=== PATIENT | female | born 1945 | race Caucasian/White ===

== ENCOUNTER 2018-08-19 13:48 | Inpatient (IN) ==
[2018-08-19] MEDS ORDERED: CeFAZolin Syr 2,000MG/20 ML 2,000 MG/20 ML SYRINGE IVPB ONE (14:11)
[2018-08-19] MEDS ORDERED: Ringers Solution, Lactated 1,000 ML IVC SCH ×2 (14:15→19:13)
[2018-08-19] MEDS ORDERED: Acetaminophen IV 1,000 MG/100 ML INFUS..BTL IVPB ONE (15:26)
[2018-08-19] MEDS ORDERED: Ondansetron 4 MG/2 ML VIAL IVP ONE (15:26)
[2018-08-19] MEDS ORDERED: Ketorolac 30 MG/ML VIAL IVP ONE (15:26)
[2018-08-19] MEDS ORDERED: *HR* Labetalol 20 MG/4 ML SYRINGE IVP PRN (15:26)
[2018-08-19] MEDS ORDERED: *HR* Promethazine 25 MG/ML VIAL IVP PRN (15:26)
[2018-08-19] MEDS ORDERED: *HR* HYDROmorphone (PF) 1 MG/ML SYRINGE IVP PRN (15:26)
[2018-08-19] MEDS ORDERED: *HR* OxyCODONE Immed Rel 5 MG TABLET PO PRN ×2 (15:26→19:13)
[2018-08-19] MEDS ORDERED: Albuterol 2.5 MG/3 ML NEBULIZER IH ONE (15:26)
--- NOTE | 2018-08-19 15:38 | Anesthesia Evaluation PreOp ---
Date of Encounter: 08/19/18 Time of Encounter: 15:34 - Past History Planned Operation: LEFT TSA Cardiac History: CHF, HTN, Hyperlipidemia, Other (NORMAL EF, TID ON STRESS TEST, 40% LAD ON LHC) Pulmonary History: Former smoker, COPD, FRANCISCO Dx (CPAP) PATIENT ACCOUNTS COORDINATOR History: Denies Any Significant HX Other Medical History: Other (OBESITY, BMI 37) Anesthesia History: No Prior Anesthetic Complications, Past Anesthesia Alcohol Use: none Drug use: none Medications and Allergies Aspirin Enteric Coated [Aspirin EC] 81 mg PO DAILY 01/06/16 [History] Metoprolol [Lopressor] 25 mg PO BID 01/06/16 [History] Sertraline [Zoloft] 1 tab PO HS 01/06/16 [History] Simvastatin [Zocor] 20 mg PO HS 01/06/16 [History] Furosemide [Lasix] 20 mg PO DAILY 07/04/18 [History] Levocetirizine Dihydrochloride [Allergy Relief (Xyzal)] 5 mg PO HS 07/04/18 [History] Albuterol Sulfate [Proair Hfa] 1 puff IH Q6H PRN 08/19/18 [History] Ascorbic Acid/Vitamin E/Biotin [Hair Skin Nails-Biotin Gummies] 1 each PO DAILY 08/19/18 [History] Budesonide/Formoterol 160/4.5 [Symbicort 160/4.5] 2 puff IH BID 08/19/18 [History] Calcium Carbonate [Calcium] 600 mg PO DAILY 08/19/18 [History] FluocinoNIDE 0.05% CRM [Lidex] 1 appl TP BID 08/19/18 [History] Iron 28 mg PO DAILY 08/19/18 [History] OxyCODONE Immed Rel [Roxicodone 5 MG] 5 mg PO Q6HR PRN 5 Days #20 tablet 08/19/18 [Rx] Piroxicam [Feldene] 20 mg PO DAILY 08/19/18 [History] Potassium Chloride 10 meq PO DAILY 08/19/18 [History] Allergy/AdvReac Type Severity Reaction Status Date / Time iodine Allergy Flushing Verified 08/19/18 15:19 Penicillins [PCN] Allergy Hives Verified 08/19/18 14:14 - Meds/Allergy Pre-op Review Medications Reviewed: Yes Allergies Reviewed: Yes Beta Blockers on Current Med List: Yes If Beta Blockers taken, Date/Time (Last Dose taken): 0900 Anesthesia Exam O2 Sat Height 1.6 m Height 1.6 m Weight 94.801 kg Weight 94.801 kg O2 Sat by Pulse Oximetry 97 Vital Signs Temp Pulse Resp BP Pulse Ox 98.5 F 62 18 157/81 97 08/19/18 14:12 08/19/18 14:12 08/19/18 14:12 08/19/18 14:12 08/19/18 14:12 NPO (# of Hours): 8 - HEENT Mallampati: IV Teeth: Edentulous Denture Type: Upper: Complete, Lower: Complete - Cardiac Rhythm: Regular - Pulmonary Breath Sounds: bilateral Clear Respiratory Effort: Symmetrical Anesthesia Assess/Plan ASA Score: 3 Anesthetic Plan: General, Regional Nerve Block Monitoring Plan: Standard Monitors Recovery Plan: PACU
[2018-08-19] MEDS ORDERED: *HR* Propofol 200 MG/20 ML VIAL IVP ONE (15:55)
--- NOTE | 2018-08-19 15:55 | History & Physical Report ---
Date of Encounter: 08/19/18 Time of Encounter: 15:55 24 Hour HP Update - Instructions Instructions: If the History and Physical is less than 30 days old and was completed prior to A.M. admission and or procedure and has NOT been updated on calendar day of procedure please complete this update prior to performing procedure. - Update Patient reports changes in Medical Condition: No Changes in examination, assessment, or condition: No Changes in Medication: No Preop tests/diagnostics Reviewed: Yes Surgery Remains Indicated: Yes Consent for Planned Operative Procedure(s) Verified: Yes - Pre-Operative Checklist Preoperative Checklist Indicated: No Prophylactic Antibiotic Ordered: Yes Is VTE Prophylaxis Indicated?: Yes
[2018-08-19] MEDS ORDERED: ROPIVACAINE HCL/PF 0.5% 30 ML VIAL ONE (16:05)
[2018-08-19] MEDS ORDERED: Ethanol\\Acetic Acid\\Na Ace\\Ben 1,000 ML IRRIG.SOLN IR ONE (16:19)
[2018-08-19] MEDS ORDERED: Clindamycin 900 MG/50 ML 900 MG/50 ML IV.SOLN IVPB ONE ×2 (16:44→16:46)
[2018-08-19] MEDS ORDERED: KETAMINE HCL 50 MG/ML SYRINGE IV ONE (16:49)
--- NOTE | 2018-08-19 16:52 | Anesthesia Procedures ---
Date of Encounter: 08/19/18 Time of Encounter: 16:45 Procedures: Anesthesia - Nerve Block Procedure Date: 08/19/18 Time: 16:45 Allergies/Adv Reactions: iodine, pcn Pre-op Diagnosis: left shoulder rc arthropathy Surgical Procedure: left TSA rev Checklist: Correct Patient Identifier, Correct procedure, History checked Correct side: Left Blood Thinner: No Monitor Applied: EKG, BP, Pulse Oximetry Supplemental Oxygen via Nasal Cannula (L/min): 2 Indication: Post Op Analgesia Pre-op Neuro Deficits: No Block Type: Supraclavicular Catheter placed: No Sterile Technique: Yes Ultrasound used: Yes Anatomy identified: Yes Visual spread of Local: Yes Neuro Stimulation: No Blood on Needle Aspiration: No Smooth Injection of Local: Yes Pain with Injection of Local: No Prep: Chlorhexadine Needle: 22 x 50 mm Stimuplex Local: Ropivacaine (0.5% 30ml), Other (decadron 8mg) Volume (cc): 30 Number of Attempts: 1 Complications: None/effective block Vitals: Vital Signs/O2 Sat/Glucose, Most Recent Temp Pulse Resp BP Pulse Ox 98.5 F 59 15 133/76 98 08/19/18 14:12 08/19/18 16:42 08/19/18 16:42 08/19/18 16:42 08/19/18 16:42
[2018-08-19] MEDS ORDERED: Lidocaine -MPF 2% 2 ML VIAL ONE ×3 (16:53→17:34)
--- NOTE | 2018-08-19 16:54 | Discharge Summary ---
Orders not resulted at time of discharge: Pending orders 08/19/18 13:26 XR post op reverse apex LT [XR] Routine Hemoglobin and Hematocrit [HEME] Routine 08/19/18 15:06 US anesthesia pain block [US] Routine Date of Encounter: 08/20/18 - Discharge Diagnosis (1) CHF (congestive heart failure) Priority: Secondary Status: Chronic Qualifiers: Heart failure type: diastolic Heart failure chronicity: chronic Qualified Code(s): I50.32 - Chronic diastolic (congestive) heart failure (2) Hypertension Priority: Secondary Status: Chronic Qualifiers: Hypertension type: unspecified Qualified Code(s): I10 - Essential (primary) hypertension (3) Hyperlipidemia Priority: Secondary Status: Chronic Qualifiers: Hyperlipidemia type: unspecified Qualified Code(s): E78.5 - Hyperlipidemia, unspecified (4) Obstructive sleep apnea Priority: Secondary Status: Chronic (5) COPD (chronic obstructive pulmonary disease) Priority: Secondary Status: Chronic Qualifiers: COPD type: unspecified COPD Qualified Code(s): J44.9 - Chronic obstructive pulmonary disease, unspecified (6) Obesity (BMI 35.0-39.9 without comorbidity) Priority: Secondary Status: Chronic (7) Rotator cuff tear arthropathy of left shoulder Priority: Primary Status: Chronic (8) Status post reverse total replacement of left shoulder Priority: Primary Status: Acute (9) Atrial fibrillation Priority: Primary Status: Acute Qualifiers: Atrial fibrillation type: unspecified Qualified Code(s): I48.91 - Unspecified atrial fibrillation (10) Coronary artery disease Priority: Secondary Status: Chronic Qualifiers: Coronary Disease-Associated Artery/Lesion type: [place] artery [place] vs. transplanted heart: [place] heart Associated angina: without angina Qualified Code(s): I25.10 - Atherosclerotic heart disease of [place] coronary artery with out angina pectoris (11) Depression Priority: Secondary Status: Chronic Qualifiers: Depression Type: major depressive disorder Major depression recurrence: unspecified whether recurrent Active/Remission status: remission status unspecified Qualified Code(s): F32.9 - Major depressive disorder, single episode, unspecified - Hospital Course Hospital course: Ms. Smith is a 73 year old female Patient seen this morning doing well, patient with stable arrhythmia Intra-Op, diagnosed with atrial fibrillation postsurgery. Patient converted back overnight. Orthopedically stable physical therapy, antibiotic therapy. - Time Spent with Patient Total time spent providing and/or coordinating discharge services: - Discharge Medications Prescriptions: New OxyCODONE Immed Rel [Roxicodone 5 MG] 5 mg PO Q6HR PRN 5 Days #20 tablet PRN Reason: Pain Continue Metoprolol [Lopressor] 25 mg PO BID Aspirin Enteric Coated [Aspirin EC] 81 mg PO DAILY Simvastatin [Zocor] 20 mg PO HS Sertraline [Zoloft] 1 tab PO HS Furosemide [Lasix] 20 mg PO DAILY Levocetirizine Dihydrochloride [Allergy Relief (Xyzal)] 5 mg PO HS Potassium Chloride 10 meq PO DAILY Albuterol Sulfate [Proair Hfa] 1 puff IH Q6H PRN PRN Reason: Shortness Of Breath Piroxicam [Feldene] 20 mg PO DAILY Iron 28 mg PO DAILY FluocinoNIDE 0.05% CRM [Lidex] 1 appl TP BID Calcium Carbonate [Calcium] 600 mg PO DAILY Ascorbic Acid/Vitamin E/Biotin [Hair Skin Nails-Biotin Gummies] 1 each PO DAILY Budesonide/Formoterol 160/4.5 [Symbicort 160/4.5] 2 puff IH BID Home Medications: Aspirin Enteric Coated [Aspirin EC] 81 mg PO DAILY 01/06/16 [History] Metoprolol [Lopressor] 25 mg PO BID 01/06/16 [History] Sertraline [Zoloft] 1 tab PO HS 01/06/16 [History] Simvastatin [Zocor] 20 mg PO HS 01/06/16 [History] Furosemide [Lasix] 20 mg PO DAILY 07/04/18 [History] Levocetirizine Dihydrochloride [Allergy Relief (Xyzal)] 5 mg PO HS 07/04/18 [History] Albuterol Sulfate [Proair Hfa] 1 puff IH Q6H PRN 08/19/18 [History] Ascorbic Acid/Vitamin E/Biotin [Hair Skin Nails-Biotin Gummies] 1 each PO DAILY 08/19/18 [History] Budesonide/Formoterol 160/4.5 [Symbicort 160/4.5] 2 puff IH BID 08/19/18 [History] Calcium Carbonate [Calcium] 600 mg PO DAILY 08/19/18 [History] FluocinoNIDE 0.05% CRM [Lidex] 1 appl TP BID 08/19/18 [History] Iron 28 mg PO DAILY 08/19/18 [History] OxyCODONE Immed Rel [Roxicodone 5 MG] 5 mg PO Q6HR PRN 5 Days #20 tablet 08/19/18 [Rx] Piroxicam [Feldene] 20 mg PO DAILY 08/19/18 [History] Potassium Chloride 10 meq PO DAILY 08/19/18 [History] Allergies/Adverse Reactions: Allergy/AdvReac Type Severity Reaction Status Date / Time iodine Allergy Flushing Verified 08/19/18 15:19 Penicillins [PCN] Allergy Hives Verified 08/19/18 14:14 Primary care physician: Deejay Dhillon DO - Discharge Instructions Follow Up With: Deejay Dhillon DO [Primary Care Provider] -
[2018-08-19] MEDS ORDERED: Ondansetron 4 MG/2 ML VIAL ONE (17:02)
[2018-08-19] MEDS ORDERED: Dexamethasone 4 MG/ML VIAL ONE (17:02)
[2018-08-19] MEDS ORDERED: EPHEDrine 50 MG/ML VIAL ONE (17:22)
[2018-08-19] MEDS ORDERED: *HR* PHENYLEPHRINE 1,000 MCG/10 ML SYRINGE IVP ONE (17:24)
[2018-08-19] MEDS ORDERED: *HR* Adenosine 6 MG/2 ML VIAL IVP ONE ×2 (17:33→17:43)
[2018-08-19] MEDS ORDERED: *HR* Amiodarone 150 MG/3 ML VIAL IVPB ONE ×2 (17:35→17:36)
[2018-08-19] MEDS ORDERED: Amiodarone Premix 360 MG/200 ML BAG IVC ONE (17:35)
--- NOTE | 2018-08-19 17:45 | Orthopedic Operative Note ---
Date of procedure: 08/19/18 Pre-op diagnosis: Left shoulder cuff tear arthropathy Post-op diagnosis: same Procedure: Procedure: Total Shoulder Replacment Reverse, left Estimated blood loss: 100 cc Hardware: Metal and polyethylene replacement: Arthrex 24, +2 , 25 mm screw glenoid baseplate, 4 locking 5.5 screw, 36+4 glenosphere, 7 apex humeral stem, poly insert 6 Exam Under anesthesia: Full motion no instability Procedural Notes: Irreparable rotator cuff tear Operative procedure: The patient was brought to the operating room and placed on the operating room table. After general anesthesia was administered the operative shoulder was examined. Findings were noted. The patient was placed in the modified beachchair position. All pressure points were padded appropriately. And the head was stabilized in the neutral position. The operative extremity was prepped and draped in the sterile surgical fashion. The patient received IV antibiotics prior to skin incision. A standard deltopectoral approach was made to the operative shoulder. Incision was made to the skin and subcutaneous tissue,hemo stasis was obtained with Bovie cautery. Using careful blunt dissection the cephalic vein was identified and mobilized medially. The deltopectoral interval was developed and the clavipectoral fascia was incised. The subscap was released off the lesser tuberosity and tagged with #2 FiberWire suture subscap was irreparable. The humerus was dislocated patient noted to have irreparable tear supraspinatus tendon, and the humeral cut was made along the anatomic neck. Anterior and posterior Bankart retractors were placed to expose the glenoid. The glenoid guide was seated and the centering hole was made. It was reamed with the appropriate reamer. The 24, +2, 25 mm screw, baseplate was seated and secured with 4 locking 5.5 screw. The baseplate was irrigated and dried and the 36+4 Glenosphere was seated and secured with the Simmons taper. The Simmons taper was tested and found to be secure, glenosphere fixation was secondarily secured with the central screw. The humerus was redislocated and prepared with the diaphyseal reamers, followed by a broaching process up to the appropriate size 7 in the patient's anatomic version. The metaphyseal reamer was then utilized. Trial reduction found the shoulder to be relocatable. Trial components were removed and 7 stem was impacted in place in the patient's anatomic version. Trial reduction found the shoulder to be relocatable and stable with the appropriate X. Trial component was removed and the real implant was seated and secured the shoulder was reduced. The shoulder had excellent motion and ex cellent stability and no evidence of dislocation. The deep tissue was irrigated with pulse irrigation. The deltopectoral interval was closed with a running #1 PDS suture, subcutaneous tissue was irrigated and closed with 0 PDS suture, the skin was closed with skin blake The patient was placed in a sterile dressing, abduction brace and extubated. The patient was then transferred to the recovery room in stable condition. Anesthesia: GETA Surgeon: Johnny Waters Was there an physician assistant primary care present: No Estimated blood loss (cc): 100 Condition: stable Disposition: PACU
--- NOTE | 2018-08-19 17:55 | Physician Discharge Referral ---
Home Health/Hosp Referral Info Transfer to: Home Health Attending Provider: Jt - Diagnosis (1) Status post reverse total replacement of left shoulder Priority: Primary Status: Acute (2) Rotator cuff tear arthropathy of left shoulder Priority: Primary Status: Chronic (3) COPD (chronic obstructive pulmonary disease) Priority: Secondary Status: Acute (4) CHF (congestive heart failure) Priority: Secondary Status: Chronic (5) Hyperlipidemia Priority: Secondary Status: Chronic (6) Hypertension Priority: Secondary Status: Chronic (7) Obesity (BMI 35.0-39.9 without comorbidity) Priority: Secondary Status: Chronic (8) Obstructive sleep apnea Priority: Secondary Status: Chronic - Respiratory Orders Smoking Cessation: Smoking cessation has been advised. For more information, call the [employer] Tobacco Quit Line at 7-251-ZFLR-NOW. - Diet/Nutrition Diet/Nutrition Orders: Regular - Activity Activity Orders: Up ad tangela, Ambulate, Chair - Services Needed Following services are medically necessary services: Nursing, Home Health Aide, Physical Therapy, Occupational Therapy Home Care Orders: Opsite dressing, leave intact until first post-operative visit. Zipline/Jaya in place, plan to remove at post-operative day #14-16. If dressing becomes >50% saturated, contact office, remove dressing and place appropriate dressing in its place. Do not allow for dressing to get wet. Shoulder Precautions x 6 weeks. Apply cold therapy wrap 3-6x/day for 20 minutes at a time. Encourage ambulation throughout the day. Use Incentive spirometer 10x/hour. Elevate affected extremity above heart as tolerated. NWB to affected upper extremity x 6 weeks. Will remove brace at first post-operative appointment. OK to remove during PT/OT and Home exercises. - Transfer Medications Prescriptions: OxyCODONE Immed Rel [Roxicodone 5 MG] 5 mg PO Q6HR PRN 5 Days #20 tablet PRN Reason: Pain Home Medications: Aspirin Enteric Coated [Aspirin EC] 81 mg PO DAILY 01/06/16 [History] Metoprolol [Lopressor] 25 mg PO BID 01/06/16 [History] Sertraline [Zoloft] 1 tab PO HS 01/06/16 [History] Simvastatin [Zocor] 20 mg PO HS 01/06/16 [History] Furosemide [Lasix] 20 mg PO DAILY 07/04/18 [History] Levocetirizine Dihydrochloride [Allergy Relief (Xyzal)] 5 mg PO HS 07/04/18 [History] Albuterol Sulfate [Proair Hfa] 1 puff IH Q6H PRN 08/19/18 [History] Ascorbic Acid/Vitamin E/Biotin [Hair Skin Nails-Biotin Gummies] 1 each PO DAILY 08/19/18 [History] Budesonide/Formoterol 160/4.5 [Symbicort 160/4.5] 2 puff IH BID 08/19/18 [History] Calcium Carbonate [Calcium] 600 mg PO DAILY 08/19/18 [History] FluocinoNIDE 0.05% CRM [Lidex] 1 appl TP BID 08/19/18 [History] Iron 28 mg PO DAILY 08/19/18 [History] OxyCODONE Immed Rel [Roxicodone 5 MG] 5 mg PO Q6HR PRN 5 Days #20 tablet 08/19/18 [Rx] Piroxicam [Feldene] 20 mg PO DAILY 08/19/18 [History] Potassium Chloride 10 meq PO DAILY 08/19/18 [History] Allergies/Adverse Reactions: Allergy/AdvReac Type Severity Reaction Status Date / Time iodine Allergy Flushing Verified 08/19/18 15:19 Penicillins [PCN] Allergy Hives Verified 08/19/18 14:14 Certification: Further, I certify that my clinical findings support that this patient is homebound (i.e. absences from home require considerable and taxing effort and are for medical reasons or jewish services or infrequently or short duration when for other reasons) because: Homebound Reason: Post-surgery restriction and or conditions limit ability to leave home Attestation: My signature below is to certify that this patient is under my care and that I, or nurse practitioner, or a physician assistant office manager working with me, has a [id number] encounter with this patient.
[2018-08-19] MEDS ORDERED: *HR* Enoxaparin 30 MG/0.3 ML SYRINGE SQ SCH (18:00)
[2018-08-19] MEDS ORDERED: Esmolol 100 MG/10 ML VIAL IVP ONE (18:32)
[2018-08-19] MEDS ORDERED: *HR* Metoprolol 5 MG/5 ML VIAL IVP ONE (18:33)
[2018-08-19 18:35] LABS: Hematocrit 38.3 % (35.3-44.9); Hemoglobin 12.5 g/dL (11.5-15.4); Mean Corpuscular HGB Conc 32.6 g/dL (31.6-35.5); Mean Corpuscular Hemoglobin 31.1 pg (28.0-33.3); Mean Corpuscular Volume 95.3 fL (83.0-100.0); Mean Platelet Volume 10.3 fL (9.4-12.4); Platelet Count 221 K/mcL (140-400); Red Blood Count 4.02 M/mcL (3.82-4.97); Red Cell Distribution Width 12.5 % (11.5-14.5)
--- NOTE | 2018-08-19 18:36 | Anesthesia Evaluation Post Op ---
Date of Encounter: 08/19/18 Time of Encounter: 18:36 - Vital Signs Vital Signs: Last Vital Signs Temp 98.5 F 08/19/18 17:52 Pulse 124 08/19/18 18:02 Resp 14 08/19/18 18:02 BP 116/66 08/19/18 18:12 Pulse Ox 98 08/19/18 18:12 - Lungs Lungs: Clear Ascult./Percussion - Airway Airway: Non-obstructed - Cardiovascular Irregular Rate, New Rhythm (cardiology consulted; new onset A fib; patient stable and asymptomatic) - Mental Status Mental Status: Alert & Oriented, Answers Appropriately - Pain Pain Scale: 1 - Nausea Vomiting Nausea Vomiting: Not Present - Hydration Hydration: NPO - Discharge PostOp Status: Transfer Patient to floor
[2018-08-19 18:53] LABS: BUN/Creatinine Ratio 24 (6-26); Blood Urea Nitrogen 18 mg/dL (8-23); Calcium 9.2 mg/dL (8.6-10.3); Carbon Dioxide 27 mEq/L (23-29); Chloride 104 mEq/L (98-107); Glucose 103 mg/dL (70-105); Osmolality,Calculated 292 (280-300); Potassium 4.2 mEq/L (3.5-5.1); Sodium 140 mEq/L (136-145); eGFR For Non-African Americans > 60 (> 60)
[2018-08-19] MEDS ORDERED: Sennosides 8.6 MG TABLET PO PRN (19:13)
[2018-08-19] MEDS ORDERED: traMADol 50 MG TABLET PO PRN (19:13)
[2018-08-19] MEDS ORDERED: *HR* OxyCODONE/APAP 5/325 TABLET PO PRN (19:13)
[2018-08-19] MEDS ORDERED: Ondansetron 4 MG/2 ML VIAL IVP PRN (19:13)
[2018-08-19] MEDS ORDERED: Temazepam 15 MG CAPSULE PO PRN (19:13)
[2018-08-19] MEDS ORDERED: MOM Conc 10 ML UD.LIQ PO PRN (19:13)
[2018-08-19] MEDS: Budesonide/Formoterol 160/4.5 1 PUFF INH IH SCH (19:42)
[2018-08-19] MEDS ORDERED: Perflutren Lipid Microsphere 1.3 ML in 0.9 % Sodium Chloride 8.7 ML IVP ONE (19:49)
[2018-08-19 20:22] LABS: Hematocrit 40.8 % (35.3-44.9); Hemoglobin 13.4 g/dL (11.5-15.4); Mean Corpuscular HGB Conc 32.8 g/dL (31.6-35.5); Mean Corpuscular Hemoglobin 31.3 pg (28.0-33.3); Mean Corpuscular Volume 95.3 fL (83.0-100.0); Mean Platelet Volume 10.4 fL (9.4-12.4); Platelet Count 228 K/mcL (140-400); Red Blood Count 4.28 M/mcL (3.82-4.97); Red Cell Distribution Width 12.6 % (11.5-14.5)
[2018-08-19 20:38] LABS: BUN/Creatinine Ratio 25 (6-26); Blood Urea Nitrogen 19 mg/dL (8-23); Calcium 9.5 mg/dL (8.6-10.3); Carbon Dioxide 24 mEq/L (23-29); Chloride 105 mEq/L (98-107); Glucose 134 mg/dL (70-105); Osmolality,Calculated 292 (280-300); Potassium 4.5 mEq/L (3.5-5.1); Sodium 139 mEq/L (136-145); Troponin I < 0.03 ng/mL (< 0.04); eGFR For Non-African Americans > 60 (> 60)
[2018-08-19] MEDS: FluocinoNIDE 0.05% CRM 15 GM TUBE TP SCH (23:19)
[2018-08-20] MEDS: Clindamycin 900 MG/50 ML 900 MG/50 ML IV.SOLN IVPB SCH ×2 (00:43→10:03)
--- NOTE | 2018-08-20 01:56 | Internal Med History&Physical ---
<Maureen Arrington - Last Filed: 08/20/18 02:34> Date of Encounter: 08/20/18 Time of Encounter: 01:54 Internal Medicine - H&P: HPI Chief complaint: Atrial fibrillation Admitted From: Home Plans for Post Hospital Care: Home History of present illness: Ms. Smith is a 73 year old female who is postop day 0 for left total shoulder arthroplasty with Dr. Waters. She has a past medical history CAD s/p LHCx3 w ithout stenting, medically managed with aspirin, simvastatin, CHF on Lasix, hypertension on metoprolol, hyperlipidemia on simvastatin, FRANCISCO on CPAP, COPD on albuterol and Symbicort, and depression on Zoloft. After the surgery while in postop, the patient had supraventricular tachycardia up to the 160s, she was treated with amiodarone and adenosine. She then went into atrial fibrillation and was treated with 5 mg IV metoprolol as well as her home dose of 25 mg metoprolol. EKG at 18:06 showed heart rate of 116, left axis deviation, left bundle branch block, and atrial fibrillation with RVR. Around 21:30 patient converted back to normal sinus rhythm. She has had a repeat of her CBC and BMP as well as troponins which were negative 2. She also had a chest x-ray which showed a left base opacity with pleural effusion which is similar to previous in 2016. Cardiology was consulted and a echocardiogram remains pending. The patient states that she was still somewhat unconscious from anesthesia and does not remember the event. She denies any chest pain, palpitations, lightheadedness, shortness of breath. Past Med Surg Social Fam HX - Past Medical History Medical history: coronary artery disease, hypertension, osteoporosis, other Additional medical history: HTN, depression, osteoporosis, bursitis, chest pain. obstructive sleep apnea. rotator cuff tear. headaches Psychiatric history: depression - Past Surgical History Surgical History: appendectomy, orthopedic, other, other Additional surgical history: Appendectomy, tubal ligation, LHC, R shoulder athroscopy. heart cath x3 - Social History Smoking Status: Former smoker Smokeless Tobacco Status: No Alcohol use: rarely Drug use: none Internal Medicine - H&P: Meds Aspirin Enteric Coated [Aspirin EC] 81 mg PO DAILY 01/06/16 [History] Metoprolol [Lopressor] 25 mg PO BID 01/06/16 [History] Sertraline [Zoloft] 1 tab PO HS 01/06/16 [History] Simvastatin [Zocor] 20 mg PO HS 01/06/16 [History] Furosemide [Lasix] 20 mg PO DAILY 07/04/18 [History] Levocetirizine Dihydrochloride [Allergy Relief (Xyzal)] 5 mg PO HS 07/04/18 [History] Albuterol Sulfate [Proair Hfa] 1 puff IH Q6H PRN 08/19/18 [History] Ascorbic Acid/Vitamin E/Biotin [Hair Skin Nails-Biotin Gummies] 1 each PO DAILY 08/19/18 [History] Budesonide/Formoterol 160/4.5 [Symbicort 160/4.5] 2 puff IH BID 08/19/18 [History] Calcium Carbonate [Calcium] 600 mg PO DAILY 08/19/18 [History] FluocinoNIDE 0.05% CRM [Lidex] 1 appl TP BID 08/19/18 [History] Iron 28 mg PO DAILY 08/19/18 [History] OxyCODONE Immed Rel [Roxicodone 5 MG] 5 mg PO Q6HR PRN 5 Days #20 tablet 08/19/18 [Rx] Piroxicam [Feldene] 20 mg PO DAILY 08/19/18 [History] Potassium Chloride 10 meq PO DAILY 08/19/18 [History] Allergy/AdvReac Type Severity Reaction Status Date / Time iodine Allergy Flushing Verified 08/19/18 15:19 Penicillins [PCN] Allergy Hives Verified 08/19/18 14:14 All Systems PM: A 10-system review of systems was performed and is negative for pertinent findings except as documented above in the HPI. - Constitutional Constitutional: no chills, no fever(s) - EENT Eyes: no change in vision Ears: no decreased hearing Nose, mouth and throat: no dysphagia, no neck pain - Cardiovascular Cardiovascular ROS IM: no chest pain, no diaphoresis, no dyspnea, no dyspnea on exertion, no edema, no lightheadedness, no palpitations, no syncope - Respiratory Respiratory: no cough, no dyspnea, no pain on inspiration - Gastrointestinal Gastrointestinal: no abdominal pain, no constipation, no diarrhea, no nausea, no vomiting - Genitourinary Genitourinary: no difficulty voiding, no dysuria, no urinary frequency, no urinary hesitancy, no urinary incontinence - Musculoskeletal Musculoskeletal ROS IM: tingling (left fingertips), no arthralgias, no myalgias - Integumentary Integumentary IM: no erythema, no rash - Neurological Neurological ROS: paresthesias, no dizziness, no focal weakness, no headache(s), no weakness - Psychiatric Psychiatric: no anxiety, no depression - Hematologic/Lymphatic Hematologic/Lymphatic: no easy bleeding, no easy bruising - Constitutional Vitals: Temp Pulse Resp BP Pulse Ox 98.5 F 61 16 115/64 93 08/19/18 23:09 08/19/18 23:09 08/19/18 23:09 08/19/18 23:09 08/19/18 23:09 Exam: Gen.: Vitals noted. No acute distress. AAOx3, resting comfortably in bed. HEENT: PERRL/EOMI, oropharynx clear, Normocephalic, atraumatic, MMM Neck: Supple. No adenopathy. Trachea midline. No cervical midline tenderness Cardiac: RRR, no murmur, +S1/S2, No BLE edema, radial and dorsal pedis pulses 3+ and symmetrical, capillary refill less than 2 seconds Pulmonary: CTA bilaterally, no wheezes, rales or rhonchi, equal chest expansion, unlabored breathing Abdomen: soft, nontender, BS noted, no guarding, no palpable HSM Skin: warm and dry, no visible lesions. MSK: Left shoulder incision dressed, dry, left arm in brace. ROM intact, gait no assessed while in bed. Non tender calf or clubbing Neuro: A&Ox3, moves all extremities, no focal deficits, sensation intact, CN2-12 intact. Psych: Appropriate mood and behavior, AOx3 Internal Med - H&P Results - Labs CBC & Chem 7: 08/19/18 20:00 08/19/18 20:00 Labs: Short CBC 08/19/18 08/19/18 Range/Units 18:15 20:00 WBC 12.2 H 15.3 H (4.3-11.1) K/mcL Hgb 12.5 13.4 (11.5-15.4) g/dL Hct 38.3 40.8 (35.3-44.9) % Plt Count 221 228 (140-400) K/mcL BMP 08/19/18 08/19/18 18:15 20:00 Sodium 140 139 Potassium 4.2 4.5 Chloride 104 105 Carbon Dioxide 27 24 BUN 18 19 Creatinine 0.74 0.77 Glucose 103 134 H Calcium 9.2 9.5 Cardiac Enzymes 08/19/18 08/19/18 Range/Units 18:15 20:00 Troponin I < 0.03 < 0.03 (< 0.04) ng/mL - Impressions ITS Impressions Shoulder X-Ray 08/19/18 13:26 IMPRESSION: Postoperative findings with normal alignment. D/ / Raoul Limon / Raoul Limon Interpreting Provider: Raoul Limon Chest X-Ray 08/19/18 17:59 IMPRESSION: 1. Interval appearance since 2016 of a left base opacity with pleural effusion. Finding is concerning for infection in the appropriate clinical setting. D/ / 08/19/2018 18:56:21 Linda Benz MD / magdalena Interpreting Provider: Linda Benz MD - Assessment and Plan (1) Atrial fibrillation Current Visit: Yes Status: Acute Assessment and plan: Patient is left total shoulder arthroplasty POD 0 While in recovery after procedure, patient had supraventricular tachycardia to 160 bpm and then into new onset atrial fibrillation Patient was treated with adenosine, amiodarone, and metoprolol Patient converted to normal sinus rhythm at 21:30 No prior history of atrial fibrillation, however she does have coronary artery disease and CHF EKG performed at 18:06 revealed heart rate 116, left axis deviation, left bundle branch block, and atrial fibrillation with RVR Chest x-ray showed left base opacity with pleural effusion which has been seen previously in 2016 Troponins were negative 2 BMP was repeated and was within normal limits Magnesium and TSH are pending Continue cardiac monitoring Echocardiogram is pending Cardiology has been consulted Qualifiers: Atrial fibrillation type: unspecified Qualified Code(s): I48.91 - Unspecifi ed atrial fibrillation (2) Status post reverse total replacement of left shoulder Current Visit: Yes Status: Acute Assessment and plan: Postop day 0 Management per orthopedics Continue clindamycin Colace, senna and milk of magnesia Zofran Pain control with Ultram and oxycodone (3) Coronary artery disease Current Visit: Yes Status: Chronic Assessment and plan: History of coronary artery disease Left heart catheter 3, no stenting, medically managed [facility] 07/04/18- mild one-vessel CAD with 15% stenosis in mid circumflex Troponins negative 2 No complaint of chest pain, diaphoresis, shortness of breath Continue home medications aspirin, simvastatin, metoprolol Continue cardiac monitoring Qualifiers: Coronary Disease-Associated Artery/Lesion type: [place] artery [place] vs. transplanted heart: [place] heart Associated angina: without angina Qualified Code(s): I25.10 - Atherosclerotic heart disease of [place] coronary artery without angina pectoris (4) CHF (congestive heart failure) Current Visit: Yes Status: Chronic Assessment and plan: Patient has a history of preserved ejection fraction congestive heart failure Last echocardiogram in 2016-LVEF 60-65%, mild concentric LVH, mild left isaías tricular diastolic dysfunction, mild aortic regurgitation Chest x-ray showed left base opacity with pleural effusion, this was seen previously in 2016 Continue home dose Lasix Qualifiers: Heart failure type: diastolic Heart failure chronicity: chronic Qualified Code(s): I50.32 - Chronic diastolic (congestive) heart failure (5) Hypertension Current Visit: Yes Status: Chronic Assessment and plan: History of hypertension Blood pressure currently controlled as 119/61 Continue home medication metoprolol Qualifiers: Hypertension type: unspecified Qualified Code(s): I10 - Essential (primary) hypertension (6) Hyperlipidemia Current Visit: Yes Status: Chronic Assessment and plan: History of hyperlipidemia Continue medications simvastatin Qualifiers: Hyperlipidemia type: unspecified Qualified Code(s): E78.5 - Hyperlipidemia, unspecified (7) Obstructive sleep apnea Current Visit: Yes Status: Chronic Assessment and plan: History of obstructive sleep apnea Continue CPAP at night (8) COPD (chronic obstructive pulmonary disease) Current Visit: Yes Status: Chronic Assessment and plan: History of COPD Not currently an exacerbation Continue home medications Symbicort, albuterol Qualifiers: COPD type: unspecified COPD Qualified Code(s): J44.9 - Chronic obstructive pulmonary disease, unspecified (9) Depression Current Visit: Yes Status: Chronic Assessment and plan: History of depression Continue Zoloft Qualifiers: Depression Type: major depressive disorder Major depression recurrence: unspecified whether recurrent Active/Remission status: remission status unspecified Qualified Code(s): F32.9 - Major depressive disorder, single episode, unspecified (10) DVT prophylaxis Current Visit: Yes Status: Acute Assessment and plan: Continue DVT prophylaxis of Lovenox - Time Spent With Patient Total time spent is greater than 50% in coordination of care (as documented) at patient's floor/unit and/or counseling patient: <Iris Castro - Last Filed: 08/20/18 07:41> Date of Encounter: 08/20/18 Internal Medicine - H&P: HPI History of present illness: Ms. Smith is a 73 year old female All Systems PM: A 10-system review of systems was performed and is negative for pertinent findings except as documented above in the HPI. - Constitutional Vitals: Temp Pulse Resp BP Pulse Ox 98.6 F 68 18 133/74 94 08/20/18 06:35 08/20/18 06:35 08/20/18 06:35 08/20/18 06:35 08/20/18 06:35 Internal Med - H&P Results - Labs CBC & Chem 7: 08/20/18 06:16 08/20/18 06:16 Labs: Short CBC 08/19/18 08/19/18 08/20/18 Range/Units 18:15 20:00 06:16 WBC 12.2 H 15.3 H (4.3-11.1) K/mcL Hgb 12.5 13.4 11.7 D (11.5-15.4) g/dL Hct 38.3 40.8 34.8 L (35.3-44.9) % Plt Count 221 228 (140-400) K/mcL BMP 08/19/18 08/19/18 08/20/18 18:15 20:00 06:16 Sodium 140 139 140 Potassium 4.2 4.5 4.6 Chloride 104 105 104 Carbon Dioxide 27 24 24 BUN 18 19 21 Creatinine 0.74 0.77 0.70 Glucose 103 134 H 141 H Calcium 9.2 9.5 9.3 Cardiac Enzymes 08/19/18 08/19/18 Range/Units 18:15 20:00 Troponin I < 0.03 < 0.03 (< 0.04) ng/mL - Impressions ITS Impressions Shoulder X-Ray 08/19/18 13:26 IMPRESSION: Postoperative findings with normal alignment. D/ / Raoul Limon / Raoul Limon Interpreting Provider: Raoul Limon Chest X-Ray 08/19/18 17:59 IMPRESSION: 1. Interval appearance since 2016 of a left base opacity with pleural effusion. Finding is concerning for infection in the appropriate clinical setting. D/ / 08/19/2018 18:56:21 Linda Benz MD / magdalena Interpreting Provider: Linda Benz MD - Time Spent With Patient Total time spent is greater than 50% in coordination of care (as documented) at patient's floor/unit and/or counseling patient: - Attending Attestation I performed a history and physical examination of the patient and asked management with the resident. I reviewed the resident's note and agree with the assessment and plan of care. Case was discussed with Dr. HART. NO PLANS FOR FURTHER TREATMENT WITH AMIODARONE AT THIS TIME. WE WILL OBTAIN ECHOCARDIOGRAM IN THE MORNING. PATIENT HAS BEEN IN NORMAL SINUS RHYTHM FOR THE PAST 3 HOURS. WE WILL CONTINUE TO MONITOR CLOSELY.
[2018-08-20 02:33] LABS: Magnesium 2.1 mg/dL (1.6-2.6); Thyroid Stimulating Hormone 3.933 mcIU/mL (0.340-5.600)
[2018-08-20] MEDS ORDERED: *HR* Enoxaparin 30 MG/0.3 ML SYRINGE SQ SCH (06:00)
--- NOTE | 2018-08-20 06:31 | Orthopedics Progress Note ---
Date of Encounter: 08/20/18 Time of Encounter: 06:30 - Assessment and Plan (1) CHF (congestive heart failure) Current Visit: Yes Status: Chronic Qualifiers: Heart failure type: diastolic Heart failure chronicity: chronic Qualified Code(s): I50.32 - Chronic diastolic (congestive) heart failure (2) Hypertension Current Visit: Yes Status: Chronic Qualifiers: Hypertension type: unspecified Qualified Code(s): I10 - Essential (primary) hypertension (3) Hyperlipidemia Current Visit: Yes Status: Chronic Qualifiers: Hyperlipidemia type: unspecified Qualified Code(s): E78.5 - Hyperlipidemia, unspecified (4) Obstructive sleep apnea Current Visit: Yes Status: Chronic (5) COPD (chronic obstructive pulmonary disease) Current Visit: Yes Status: Chronic Qualifiers: COPD type: unspecified COPD Qualified Code(s): J44.9 - Chronic obstructive pulmonary disease, unspecified (6) Obesity (BMI 35.0-39.9 without comorbidity) Current Visit: Yes Status: Chronic (7) Rotator cuff tear arthropathy of left shoulder Current Visit: Yes Status: Chronic (8) Status post reverse total replacement of left shoulder Current Visit: Yes Status: Acute Subjective Interval history: Patient was seen this morning doing well without complaints. Afebrile vital signs stable. Operative extremity: Neurovascularly intact Dressing clean dry and intact Calves nontender Assessment and plan: Continue with postoperative care Patient converted out of A. fib overnight orthopedically stable for discharge plan as per hospitalist and cardiology. Objective Vital signs: Vital Signs Temp Pulse Resp BP Pulse Ox 08/20/18 03:23 98 F 59 14 108/65 08/19/18 23:09 98.5 F 61 16 115/64 93 08/19/18 20:44 98.5 F 136 18 119/61 96 08/19/18 20:10 98.2 F 103 16 112/73 98 08/19/18 19:44 16 99 08/19/18 19:14 98.0 F 86 16 127/78 97 08/19/18 18:54 97.6 F 111 17 102/80 98 08/19/18 18:44 97.9 F 141 12 95/78 98 08/19/18 18:34 98 16 111/80 96 08/19/18 18:24 120 16 130/83 97 08/19/18 18:22 98.5 F 112 14 121/93 99 08/19/18 18:12 111 14 116/66 98 08/19/18 18:02 124 14 123/83 100 08/19/18 17:52 98.5 F 125 16 109/80 97 08/19/18 16:42 59 15 133/76 98 08/19/18 14:12 98.5 F 62 18 157/81 97 Intake and Output 08/19/18 08/19/18 08/20/18 15:59 23:59 07:59 Output Total 100 / 100 Balance -100 / -100 Output: Estimated Blood Loss 100 / 100 Other: # Voids 1 1 Weight 94.801 kg 93.8 kg - Labs CBC & BMP: 08/19/18 20:00 08/19/18 20:00 Labs: Abnormal lab results WBC 15.3 K/mcL (4.3-11.1) H 08/19/18 20:00 Glucose 134 mg/dL (70-105) H 08/19/18 20:00 Consult Discharge Plan - Plan Referrals: Deejay Dhillon DO [Primary Care Provider] -
[2018-08-20 06:44] LABS: Hematocrit 34.8 % (35.3-44.9)
[2018-08-20 06:48] LABS: Hemoglobin 11.7 g/dL (11.5-15.4)
[2018-08-20 07:03] LABS: BUN/Creatinine Ratio 30 (6-26); Blood Urea Nitrogen 21 mg/dL (8-23); Calcium 9.3 mg/dL (8.6-10.3); Carbon Dioxide 24 mEq/L (23-29); Chloride 104 mEq/L (98-107); Glucose 141 mg/dL (70-105); Osmolality,Calculated 295 (280-300); Potassium 4.6 mEq/L (3.5-5.1); Sodium 140 mEq/L (136-145); eGFR For Non-African Americans > 60 (> 60)
[2018-08-20] MEDS: Budesonide/Formoterol 160/4.5 1 PUFF INH IH SCH (07:45)
[2018-08-20] MEDS ORDERED: PIROXICAM 20 MG PO SCH (09:00)
[2018-08-20] MEDS ORDERED: Furosemide 20 MG TABLET PO SCH (09:00)
[2018-08-20] MEDS ORDERED: ASCORBIC ACID PO SCH (09:00)
[2018-08-20] MEDS ORDERED: VITAMIN E PO SCH (09:00)
[2018-08-20] MEDS ORDERED: BIOTIN PO SCH (09:00)
[2018-08-20] MEDS ORDERED: IRON 28 MG PO SCH (09:00)
[2018-08-20] MEDS ORDERED: Aspirin Enteric Coated 81 MG Tablet PO SCH (09:00)
--- NOTE | 2018-08-20 10:00 | Cardiology Consult Note ---
<CourtneyBlue nash R - Last Filed: 08/20/18 09:56> Date of Encounter: 08/20/18 Time of Encounter: 09:56 Assessment and Plan (1) PAF (paroxysmal atrial fibrillation) Current Visit: Yes Status: Acute New diagnosis of PAF. Reportedly went into SVT, then A-Fib post op. ECG reviewed--A-Fib RVR. Pt since converted back to SR. On Lopressor 25mg BID at home. Continue. K, Mag, TSH WNL. Troponin negative x 2. Known prior LBBB. TTE 11/2015 EF 60-65%, mild cLVH, mild LVDD, mild AR. Repeat TTE pending. [facility] 06/2018 mild 1V CAD, 15% mLCx. [id number] (Age, HTN, Female). High CVA risk. Recommend AC. Discussed Coumadin vs. NOACs. Prefers NOAC. Will manley check. If no significant findings on TTE, anticipate sign off with outpt follow-up in 2-3 weeks. (2) Coronary artery disease Current Visit: Yes Status: Chronic Mild 1V CAD on [facility] 06/2018. 15% mLCx. Continue ASA, Statin, BB. Qualifiers: Coronary Disease-Associated Artery/Lesion type: [place] artery [place] vs. transplanted heart: [place] heart Associated angina: without angina Qualified Code(s): I25.10 - Atherosclerotic heart disease of [place] coronary artery without angina pectoris Discussion w patient/family: The assessment and plan as outlined above was discussed with the patient and/or family members who expressed understanding and agreement. All questions were answered. Thank you for involving us in the care of your patient. Please call with any questions. I will discuss and review with Dr. Villaseñor and make changes as necessary. History of Present Illness Consult date: 08/20/18 Consult reason: A-Fib RVR History of present illness: Ms. Smith is a 73 year old female who is postop left total shoulder arthroplasty with Dr. Waters. She has a PMH of mild 1V CAD on [facility] 06/2018, diastolic CHF, HTN, HLD, FRANCIS[place] on CPAP, COPD, and depression. While in postop, pt reportedly had SVT up to the 160s, treated with amiodarone and adenosine. Went into A-Fib and was given 5 mg IV Lopressor and home dose of 25 mg PO metoprolol. EKG at 18:06 showed heart rate of 116, left axis deviation, left bundle branch block, and atrial fibrillation with RVR. Around 21:30 patient converted back to normal si nus rhythm. Troponins which were negative 2. Cardiology consulted for further recs. Pt denies symptoms or recollection during events. She does state that usually once per month she will have an episode of palpitations/dyspnea that last approximately 1 hour before spontaneously resolving. Known prior LBBB. Past Med Surg Social Fam HX - Past Medical History Medical history: coronary artery disease, hypertension, osteoporosis, other Additional medical history: HTN, depression, osteoporosis, bursitis, chest pain. obstructive sleep apnea. rotator cuff tear. headaches Psychiatric history: depression - Past Surgical History Surgical History: appendectomy, orthopedic, other, other Additional surgical history: Appendectomy, tubal ligation, LHC, R shoulder athroscopy. heart cath x3 - Social History Smoking Status: Former smoker Smokeless Tobacco Status: No Alcohol use: rarely Drug use: none Medications and Allergies Aspirin Enteric Coated [Aspirin EC] 81 mg PO DAILY 01/06/16 [History] Metoprolol [Lopressor] 25 mg PO BID 01/06/16 [History] Sertraline [Zoloft] 1 tab PO HS 01/06/16 [History] Simvastatin [Zocor] 20 mg PO HS 01/06/16 [History] Furosemide [Lasix] 20 mg PO DAILY 07/04/18 [History] Levocetirizine Dihydrochloride [Allergy Relief (Xyzal)] 5 mg PO HS 07/04/18 [History] Albuterol Sulfate [Proair Hfa] 1 puff IH Q6H PRN 08/19/18 [History] Ascorbic Acid/Vitamin E/Biotin [Hair Skin Nails-Biotin Gummies] 1 each PO DAILY 08/19/18 [History] Budesonide/Formoterol 160/4.5 [Symbicort 160/4.5] 2 puff IH BID 08/19/18 [History] Calcium Carbonate [Calcium] 600 mg PO DAILY 08/19/18 [History] FluocinoNIDE 0.05% CRM [Lidex] 1 appl TP BID 08/19/18 [History] Iron 28 mg PO DAILY 08/19/18 [History] OxyCODONE Immed Rel [Roxicodone 5 MG] 5 mg PO Q6HR PRN 5 Days #20 tablet 08/19/18 [Rx] Piroxicam [Feldene] 20 mg PO DAILY 08/19/18 [History] Potassium Chloride 10 meq PO DAILY 08/19/18 [History] Allergy/AdvReac Type Severity Reaction Status Date / Time iodine Allergy Flushing Verified 08/19/18 15:19 Penicillins [PCN] Allergy Hives Verified 08/19/18 14:14 All Systems Review: The remainder of the systems were reviewed and are negative - Cardiovascular Cardiovascular: as per HPI, dyspnea at rest, dyspnea on exertion, palpitations - Respiratory Respiratory: dyspnea Physical Examination Vital Signs, Last 4 Hours Temp Pulse Resp BP Pulse Ox 08/20/18 06:35 98.6 F 68 18 133/74 94 Vital Signs Temp Pulse Resp BP Pulse Ox 08/20/18 06:35 98.6 F 68 18 133/74 94 08/20/18 03:23 98 F 59 14 108/65 08/19/18 23:09 98.5 F 61 16 115/64 93 08/19/18 20:44 98.5 F 136 18 119/61 96 08/19/18 20:10 98.2 F 103 16 112/73 98 08/19/18 19:44 16 99 08/19/18 19:14 98.0 F 86 16 127/78 97 08/19/18 18:54 97.6 F 111 17 102/80 98 08/19/18 18:44 97.9 F 141 12 95/78 98 08/19/18 18:34 98 16 111/80 96 08/19/18 18:24 120 16 130/83 97 08/19/18 18:22 98.5 F 112 14 121/93 99 08/19/18 18:12 111 14 116/66 98 08/19/18 18:02 124 14 123/83 100 08/19/18 17:52 98.5 F 125 16 109/80 97 08/19/18 16:42 59 15 133/76 98 08/19/18 14:12 98.5 F 62 18 157/81 97 Intake and Output 08/19/18 08/20/18 08/20/18 23:59 07:59 15:59 Intake Total 240 / 240 Output Total 100 / 100 Balance -100 / -100 240 / 240 Intake: Oral 240 / 240 Output: Estimated Blood Loss 100 / 100 Other: Meal Breakfast Percent of Meal Consumed 100% # Voids 1 1 Weight 93.8 kg General: Conversant, No Apparent Distress HEENT: Atraumatic, Normocephaly, Mucus Membranes Moist Neck: No JVD, Normal carotid pulses Cardiac: Reg Rate and Rhythm, Normal S1 and S2, No Murmur Lungs: Normal Breath Sounds, No Wheeze, Rales, Rhonchi Neuro: Alert and responsive, No focal deficits noted Abdomen: Soft, Non-Tender Skin: No rashes noted on visualized skin Musculoskeletal: No Chest Wall Tenderness Extremities: No Clubbing, No Cyanosis, No Edema, Normal Pulses Results 08/20/18 06:16 08/20/18 06:16 Lab Results 08/19/18 08/19/18 08/19/18 18:15 18:15 18:15 WBC 12.2 H Hgb 12.5 Hct 38.3 Plt Count 221 Sodium 140 Potassium 4.2 Chloride 104 Carbon Dioxide 27 BUN 18 Creatinine 0.74 Glucose 103 Calcium 9.2 Magnesium Troponin I < 0.03 TSH 08/19/18 08/19/18 08/20/18 20:00 20:00 06:16 WBC 15.3 H Hgb 13.4 11.7 D Hct 40.8 34.8 L Plt Count 228 Sodium 139 Potassium 4.5 Chloride 105 Carbon Dioxide 24 BUN 19 Creatinine 0.77 Glucose 134 H Calcium 9.5 Magnesium 2.1 Troponin I < 0.03 TSH 3.933 08/20/18 06:16 WBC Hgb Hct Plt Count Sodium 140 Potassium 4.6 Chloride 104 Carbon Dioxide 24 BUN 21 Creatinine 0.70 Glucose 141 H Calcium 9.3 Magnesium Troponin I TSH Short CBC 08/20/18 08/19/18 08/19/18 Range/Units 06:16 20:00 18:15 WBC 15.3 H 12.2 H (4.3-11.1) K/mcL Hgb 11.7 D 13.4 12.5 (11.5-15.4) g/dL Hct 34.8 L 40.8 38.3 (35.3-44.9) % Plt Count 228 221 (140-400) K/mcL BMP 08/20/18 08/19/18 08/19/18 Range/Units 06:16 20:00 18:15 Sodium 140 139 140 (136-145) mEq/L Potassium 4.6 4.5 4.2 (3.5-5.1) mEq/L Chloride 104 105 104 (98-107) mEq/L Carbon Dioxide 24 24 27 (23-29) mEq/L BUN 21 19 18 (8-23) mg/dL Creatinine 0.70 0.77 0.74 (0.60-1.20) mg/dL Glucose 141 H 134 H 103 (70-105) mg/dL Calcium 9.3 9.5 9.2 (8.6-10.3) mg/dL Cardiac Enzymes 08/19/18 08/19/18 Range/Units 20:00 18:15 Troponin I < 0.03 < 0.03 (< 0.04) ng/mL Impressions Shoulder X-Ray 08/19/18 13:26 IMPRESSION: Postoperative findings with normal alignment. D/ / Raoul Limon / Raoul Limon Interpreting Provider: Raoul Limon Chest X-Ray 08/19/18 17:59 IMPRESSION: 1. Interval appearance since 2016 of a left base opacity with pleural effusion. Finding is concerning for infection in the appropriate clinical setting. D/ / 08/19/2018 18:56:21 Linda Benz MD / magdalena Interpreting Provider: Linda Benz MD Active Medications Albuterol Sulfate (Albuterol Inhaler) 1 puff IH Q6H PRN PRN Reason: Shortness Of Breath Stop: 02/18/19 19:14 Aspirin (Aspirin Ec) 81 mg PO DAILY [facility] Stop: 02/19/19 09:01 Budesonide/Formoterol Fumarate (Symbicort) 2 puff IH BIDR [facility]; Protocol Stop: 02/18/19 22:01 Last Admin: 08/20/18 07:45 Dose: Not Given Calcium Carbonate (Tums) 500 mg PO DAILY [facility] Stop: 02/19/19 09:01 Docusate Sodium (Colace) 100 mg PO BID [facility]; Protocol Stop: 02/18/19 21:01 Last Admin: 08/19/18 20:06 Dose: 100 mg Enoxaparin Sodium (Lovenox) 30 mg SQ Q12HR [facility]; Protocol Stop: 02/18/19 18:01 Last Admin: 08/20/18 06:35 Dose: 30 mg Fluocinonide (Lidex) 1 appl TP BID [facility]; Protocol Stop: 02/18/19 21:01 Last Admin: 08/19/18 23:19 Dose: Not Given Furosemide (Lasix) 20 mg PO DAILY [facility] Stop: 02/19/19 09:01 Lactated Ringer's (Lactated Ringers) 1,000 mls @ 75 mls/hr IVC .[id number] [facility] Stop: 02/18/19 19:14 Magnesium Hydroxide (Milk Of Magnesia Conc) 5 ml PO HS PRN PRN Reason: Constipation Stop: 02/18/19 19:14 Metoprolol Tartrate (Lopressor) 25 mg PO BID [facility] Stop: 02/18/19 21:01 Last Admin: 08/19/18 20:06 Dose: 25 mg Ondansetron HCl (Zofran) 4 mg IVP Q6HR PRN PRN Reason: Nausea And Vomiting Stop: 02/18/19 19:14 Oxycodone HCl (Roxicodone) 10 mg PO Q4HR PRN PRN Reason: Severe pain 7-10 Stop: 02/18/19 19:14 Oxycodone/Acetaminophen (Percocet 5/325) 1 each PO Q4HR PRN PRN Reason: Moderate Pain 4-6 Stop: 02/18/19 19:14 Pharmacy Profile Note (Patient Taking Own Medication) 1 each PO DAILY [facility] Stop: 02/19/19 09:01 Pharmacy Profile Note (Patient Taking Own Medication) 1 each PO DAILY [facility] Stop: 02/19/19 09:01 Pharmacy Profile Note (Patient Taking Own Medication) 1 each PO HS [facility] Stop: 02/18/19 21:01 Last Admin: 08/19/18 23:21 Dose: Not Given Pharmacy Profile Note (Patient Taking Own Medication) 1 each PO DAILY [facility] Stop: 02/19/19 09:01 Potassium Chloride (Potassium Chloride) 10 meq PO DAILY [facility] Stop: 02/19/19 09:01 Senna (Senna) 17.2 mg PO HS PRN PRN Reason: Constipation Stop: 02/18/19 19:14 Sertraline HCl (Zoloft) mg PO HS [facility] Stop: 02/18/19 21:01 Simvastatin (Zocor) 20 mg PO HS [facility]; Protocol Stop: 02/18/19 21:01 Last Admin: 08/19/18 20:06 Dose: 20 mg Temazepam (Restoril) 15 mg PO HS PRN; Protocol PRN Reason: Insomnia Stop: 02/18/19 19:14 Tramadol HCl (Ultram) 50 mg PO Q6HR PRN PRN Reason: Mild Pain 1-3 Stop: 02/18/19 19:14 - Imaging and Cardiology Echo: pending - EKG Interpretation EKG results cardiology: personally reviewed (A-Fib, rate 116, LBBB), other (12 hr tele AVG HR 73, now SR) Consult Discharge Plan - Plan Referrals: Deejay Dhillon DO [Primary Care Provider] - <Monik Villaseñor - Last Filed: 08/20/18 11:42> Date of Encounter: 08/20/18 - Attending Attestation I independently examined this patient and my medical decision-making was reviewed with the [employer]OCIATE. I agree with the documented findings, disposition and treatment plan as described. Ms. Smith developed newly discovered paroxysmal atrial fibrillation after undergoing shoulder surgery. She has since converted back to sinus rhythm. Electolytes, TSH WNL. Troponin negative. Known prior LBBB. Echo personally reviewed - normal LV systolic function, valvular abnormalities as described. No serious concerns at this time. Recommend continuing lopressor. CHADSVASC 3 - patient to start Eliquis 5mg BID (manley check $5/month - confirmed with the patient this is not cost prohibitive). Recommend outpatient Cardiology follow up. Will sign off. Assessment and Plan Discussion w patient/family: The assessment and plan as outlined above was discussed with the patient and/or family members who expressed understanding and agreement. All questions were answered. Thank you for involving us in the care of your patient. Please call with any questions. History of Present Illness History of present illness: Ms. Smith is a 73 year old female All Systems Review: The remainder of the systems were reviewed and are negative Physical Examination Vital Signs, Last 4 Hours Temp Pulse Resp BP Pulse Ox 08/20/18 10:57 98.3 F 56 18 111/63 96 Results 08/20/18 06:16 08/20/18 06:16 Lab Results 08/19/18 08/19/18 08/19/18 18:15 18:15 18:15 WBC 12.2 H Hgb 12.5 Hct 38.3 Plt Count 221 Sodium 140 Potassium 4.2 Chloride 104 Carbon Dioxide 27 BUN 18 Creatinine 0.74 Glucose 103 Calcium 9.2 Magnesium Troponin I < 0.03 TSH 08/19/18 08/19/18 08/20/18 20:00 20:00 06:16 WBC 15.3 H Hgb 13.4 11.7 D Hct 40.8 34.8 L Plt Count 228 Sodium 139 Potassium 4.5 Chloride 105 Carbon Dioxide 24 BUN 19 Creatinine 0.77 Glucose 134 H Calcium 9.5 Magnesium 2.1 Troponin I < 0.03 TSH 3.933 08/20/18 06:16 WBC Hgb Hct Plt Count Sodium 140 Potassium 4.6 Chloride 104 Carbon Dioxide 24 BUN 21 Creatinine 0.70 Glucose 141 H Calcium 9.3 Magnesium Troponin I TSH
[2018-08-20] MEDS: FluocinoNIDE 0.05% CRM 15 GM TUBE TP SCH (10:03)
[2018-08-20] MEDS ORDERED: Apixaban 5 MG TABLET PO SCH (11:15)
--- NOTE | 2018-08-20 15:25 | Event Note ---
Date of Encounter: 08/20/18 Time of Encounter: 09:00 Patient was seen and examined. Feels fine, denies chest pain, shortness of breath. On exam, heart rate is regular, no murmurs. Lungs are clear. A/P: A Fib: Switch to sinus rhythm at this point. Cardiology consult on case, recommend continue metoprolol and add Eliquis 5mg bid for long-term anticoagulations.
--- NOTE | 2018-08-20 15:33 | Discharge Summary ---
- NOTES TO OUTPATIENT PROVIDER Notes to Outpatient Provider: please f/u with orthopedics for shoulder issue Orders not resulted at time of discharge: Pending orders 08/19/18 17:53 EKG [ECG 12 lead ECG] [ECG] Stat 08/19/18 18:11 Surgical Pathology [PTH] Routine 08/21/18 04:00 Basic Metabolic Panel DAILY Hemoglobin and Hematocrit [HEME] DAILY Date of Encounter: 08/20/18 Time of Encounter: 12:00 - Discharge Diagnosis (1) DVT prophylaxis Priority: Secondary Status: Acute (2) PAF (paroxysmal atrial fibrillation) Priority: Primary Status: Acute (3) Status post reverse total replacement of left shoulder Priority: Secondary Status: Acute Hospital course: Ms. Smith is a 73 year old female admitted for A. fib RVR. Patient had left shoulder replacement and developed SVT and then A. fib RVR. Heart rate converts to sinus rhythm on metoprolol. Cardiology consult saw patient, recommended long-term anticoagulation with Eliquis 5mg bid. Patient remains sinus rhythm at this point, denies palpitation, chest pain, or shortness of breath. Cardiology signed off. I have seen and examined the patient today. Patient is awake alert, oriented 3. Vitals are stable. Will DC patient home. Continue by mouth metoprolol and Eliquis for A. fib. Patient will follow-up with orthopedics as outpatient for post operative care. Discharge discussed with: patient - Time Spent with Patient Total time spent providing and/or coordinating discharge services: 40 minutes Time spent: Greater than 30 minutes - Discharge Medications Prescriptions: New OxyCODONE Immed Rel [Roxicodone 5 MG] 5 mg PO Q6HR PRN 5 Days #20 tablet PRN Reason: Pain Apixaban [Eliquis] 5 mg PO BID 30 Days #60 tablet Continue Metoprolol [Lopressor] 25 mg PO BID Aspirin Enteric Coated [Aspirin EC] 81 mg PO DAILY Simvastatin [Zocor] 20 mg PO HS Sertraline [Zoloft] 1 tab PO HS Furosemide [Lasix] 20 mg PO DAILY Levocetirizine Dihydrochloride [Allergy Relief (Xyzal)] 5 mg PO HS Potassium Chloride 10 meq PO DAILY Albuterol Sulfate [Proair Hfa] 1 puff IH Q6H PRN PRN Reason: Shortness Of Breath Piroxicam [Feldene] 20 mg PO DAILY Iron 28 mg PO DAILY FluocinoNIDE 0.05% CRM [Lidex] 1 appl TP BID Calcium Carbonate [Calcium] 600 mg PO DAILY Ascorbic Acid/Vitamin E/Biotin [Hair Skin Nails-Biotin Gummies] 1 each PO DAILY Budesonide/Formoterol 160/4.5 [Symbicort 160/4.5] 2 puff IH BID Home Medications: Aspirin Enteric Coated [Aspirin EC] 81 mg PO DAILY 01/06/16 [History] Metoprolol [Lopressor] 25 mg PO BID 01/06/16 [History] Sertraline [Zoloft] 1 tab PO HS 01/06/16 [History] Simvastatin [Zocor] 20 mg PO HS 01/06/16 [History] Furosemide [Lasix] 20 mg PO DAILY 07/04/18 [History] Levocetirizine Dihydrochloride [Allergy Relief (Xyzal)] 5 mg PO HS 07/04/18 [History] Albuterol Sulfate [Proair Hfa] 1 puff IH Q6H PRN 08/19/18 [History] Ascorbic Acid/Vitamin E/Biotin [Hair Skin Nails-Biotin Gummies] 1 each PO DAILY 08/19/18 [History] Budesonide/Formoterol 160/4.5 [Symbicort 160/4.5] 2 puff IH BID 08/19/18 [Hi story] Calcium Carbonate [Calcium] 600 mg PO DAILY 08/19/18 [History] FluocinoNIDE 0.05% CRM [Lidex] 1 appl TP BID 08/19/18 [History] Iron 28 mg PO DAILY 08/19/18 [History] OxyCODONE Immed Rel [Roxicodone 5 MG] 5 mg PO Q6HR PRN 5 Days #20 tablet 08/19/18 [Rx] Piroxicam [Feldene] 20 mg PO DAILY 08/19/18 [History] Potassium Chloride 10 meq PO DAILY 08/19/18 [History] Apixaban [Eliquis] 5 mg PO BID 30 Days #60 tablet 08/20/18 [Rx] Allergies/Adverse Reactions: Allergy/AdvReac Type Severity Reaction Status Date / Time iodine Allergy Flushing Verified 08/19/18 15:19 Penicillins [PCN] Allergy Hives Verified 08/19/18 14:14 Date of admission: 08/19/18 19:18 Primary care physician: Deejay Dhillon DO Consults: 08/19/18 18:34 Consult to Cardiology [CONS] Stat Comment: Consulting Provider: Cardiology Stephanie Reason for Consult: new onset a fib Call Completed: Yes 08/19/18 19:13 Consult to Occupational Therapy [CONS] Routine Comment: post shoulder surgery Reason for Consult: post shoulder surgery Does patient have active BEDREST order?: No Is patient medically & hemodynamically stable?: Yes Consult to Physical Therapy [CONS] Routine Comment: post shoulder surgery Reason for Consult: post shoulder surgery Does patient have active BEDREST order?: No Is patient medically & hemodynamically stable?: Yes Consult to [employer] [employer] [CONS] Routine Reason for SW Consult: shoulder surgery RT Post Op Consult [CONS] Routine 08/19/18 20:09 Consult to Hospitalist [CONS] Stat Consulting Provider: Hospitalist Monika Reason for Consult: Post op Afib RVR Call Completed: No Discharging clinician: Herlinda Rodas Anticipated date of discharge: 08/20/18 - Constitutional Vitals: Temp Pulse Resp BP Pulse Ox 98.3 F 56 18 111/63 96 08/20/18 10:57 08/20/18 10:57 08/20/18 10:57 08/20/18 10:57 08/20/18 10:57 Exam: Pt is AAO x 3, in NAD HEENT: NC/AT, PERRL Neck: Supple, no JVD, no LAD Lungs: CTA b/l Heart: S1S2, RRR Abd: Soft, nontender, BS present Ext: ROM wnl, no pedal edema, left shoulder S/P surgery on sling fixation Neuro: No focal deficit - Patient Status Disposition: Home, Self-Care Condition: Good Functional capacity at discharge: independent ambulation Overall status at discharge: patient is back to baseline - Discharge Instructions Follow Up With: Deejay Dhillon DO [Primary Care Provider] - - Diet and Activity Activity: increase activity as tolerated Diet: low fat, low cholesterol, low salt diet
[2018-08-20 15:40] VITALS: BP 130/73
== END 2018-08-20 17:48 | disposition home or self-care (01) | DRG 483 ==
LOC: SAMDAY 13:48 → SUATTDRO 19:18 → 3NENU 19:18
PROVIDERS: ADMIT Orthopaedic Surgery; ATTEND Internal Medicine